=== PATIENT | male | born 1985 | race Caucasian/White ===

== ENCOUNTER 2016-06-23 05:55 | Emergency (ER) | payer SELFPAY | END 2016-06-23 07:35 | disposition home or self-care (01) | LOC: ER1 05:55 | DX: M65.4 Radial styloid tenosynovitis [de Quervain] (principal); F17.200 Nicotine dependence, unspecified, uncomplicated | CPT/HCPCS: 29125; 73090; 73110; 96372; 99283; J1100; J1885 ==